=== PATIENT | male | born 1985 | race Caucasian/White ===

== ENCOUNTER → 2021-01-12 | Outpatient (CLI) | payer OTHER ==
[~2021-01-12] MED LIST: GADOTERATE 5 MMOL/10ML VIAL. INT ART ONE; IOHEXOL 300 MG/ML 50 ML VIAL. INT ART ONE; LIDOCAINE 1% Multi-Dose 20 ML VIAL. ID ONE
--- NOTE | 2021-01-12 17:52 | KCIC ---
EXAM: MRI RIGHT SHOULDER WITH CONTRAST INDICATION: Fall on outstretched hand 3 months ago, pain and decreased range of motion. COMPARISON: None TECHNIQUE: Multiplanar, multisequence imaging of the right shoulder after intra-articular injection o f contrast, performed separately. FINDINGS: Exam is limited by motion artifact on multiple sequences. ROTATOR CUFF: The supraspinatus, infraspinatus, subscapularis, and teres minor tendons are intact. No rotator cuff muscle atrophy or edema. LABRUM: There is a large superior labral tear extending anteriorly and posteriorly. This extends post eriorly to the posterior inferior labrum. This extends anteriorly through the anterior superior and a nterior labrum and possibly into the anterior inferior labrum although no anterior inferior labral te ar seen on ABER sequence. BICEPS TENDON: The biceps tendon is intact and located. ACROMIOCLAVICULAR JOINT: Normal. GLENOHUMERAL JOINT: Articular cartilage grossly intact. There is slight posterior decentering of the humeral head. No acute fracture.. No acute fracture or marrow signal abnormality. Alignment is normal . OTHER: Contrast distends joint. No contrast in the subacromial-subdeltoid bursa. IMPRESSION:Large SLAP tear extending posteriorly to the posterior inferior labrum and anteriorly to a t least the anterior labrum. Electronically signed by: Alejandrina Rouse MD (01/12/2021 5:50 PM) [id number]
--- NOTE | 2021-01-12 18:01 | KCIC ---
Fluoroscopically guided injection of the right shoulder to facilitate a MR arthrogram 01/12/2021 Clinical history: Right shoulder pain. Technique: After the risks and benefits of the procedure were explained to the patient, written infor med consent was obtained. The anterior skin surface of the right shoulder was prepped and draped in s terile fashion. 1% lidocaine was used as local anesthetic. Under fluoroscopic guidance, a 22-gauge sp inal needle was advanced into the anterior aspect of the left glenohumeral joint. Intra-articular pos ition of the needle was confirmed by injecting 3 cc of Omnipaque 300. Following this 15 cc of a solut ion containing 5 cc of 0.1% lidocaine, 5 cc of Omnipaque 300, 15 cc of normal saline and 0.1 cc of CL ARISCAN were injected into the right glenohumeral joint. Following this the needle was removed and he mostasis achieved at the puncture site. A sterile bandage was placed on the skin puncture site. The p atient tolerated the procedure well and there were no immediate complications. The patient was taken to MRI for further imaging evaluation. The total fluoroscopic time for this study was 25 seconds. 1 d igital fluoroscopic captured AP radiograph of the right shoulder was obtained. Impression: Technically successful injection of the right shoulder joint under fluoroscopy to facilit ate a MR arthrogram as outlined above. Electronically signed by: Tab Wiggins MD (01/12/2021 5:58 PM) [id number]
== END ==
LOC: KCIC 13:31
PROVIDERS: ATTEND Family Medicine
DX: M25.511 Pain in right shoulder (principal); S43.431A Superior glenoid labrum lesion of right shoulder, initial encounter; X58.XXXA Exposure to other specified factors, initial encounter; Y93.89 Activity, other specified; Y92.89 Other specified places as the place of occurrence of the external cause
CPT/HCPCS: 23350; 73222; 77002; A9575; J3490; Q9967

== ENCOUNTER 2021-02-12 06:00 | Day surgery (SDC) | payer OTHER ==
[~2021-02-12] VITALS: Ht 182.9 cm; Wt 95.4 kg
[~2021-02-12 06:00] MED LIST changes: -GADOTERATE 5 MMOL/10ML VIAL. INT ART ONE; +HYDROmorphone 2 MG/ML VIAL IVP PRN; -IOHEXOL 300 MG/ML 50 ML VIAL. INT ART ONE; +IV RINGERS,LACTATED 1000ML 1,000 ML IV SCH; -LIDOCAINE 1% Multi-Dose 20 ML VIAL. ID ONE; +MORPHINE SULFATE 2 MG/ML INJ. IVP PRN; +PROCHLORPERAZINE 10 MG/2 ML VIAL. IVP PRN; +fentaNYL PF VIAL 100 MCG/2 ML VIAL IVP PRN
[2021-02-12] MEDS ORDERED: MIDAZOLAM HCL/PF 2 MG/2 ML VIAL. ONE (06:27)
[2021-02-12] MEDS ORDERED: BUPIVACAINE MPF 0.5% 30 ML VIAL. ONE (06:27)
[2021-02-12 06:31] VITALS: BP 137/76
[2021-02-12] MEDS ORDERED: DEXAMETHASONE SOD PHOS 4 MG/ML VIAL ONE (06:40)
[2021-02-12] MEDS ORDERED: LIDOCAINE 2% PF 5 ML VIAL. ONE (06:40)
[2021-02-12] MEDS ORDERED: ROCURONIUM 50 MG/5 ML VIAL. ONE (06:40)
[2021-02-12] MEDS ORDERED: PROPOFOL 10 MG/ML (20ML) VIAL. IV ONE ×2 (06:40→08:12)
[2021-02-12] MEDS ORDERED: ONDANSETRON PF 4 MG/2 ML VIAL. ONE (06:40)
[2021-02-12] MEDS ORDERED: EPINEPHrine VIAL 30 MG/30 ML VIAL ONE (07:14)
[2021-02-12] MEDS ORDERED: OXYC1TAB19 PO (07:35)
[2021-02-12] MEDS ORDERED: fentaNYL PF VIAL 100 MCG/2 ML VIAL ONE ×2 (07:46→10:03)
[2021-02-12] MEDS ORDERED: NEOSTIGMINE METHYLSULFATE 5 MG/5 ML SYRINGE. ONE (09:15)
[2021-02-12] MEDS ORDERED: SEVOFLURANE 61 TO 120 MINUTES. IH ONE (09:16)
--- NOTE | 2021-02-12 09:26 | DISCH ---
DISCHARGE INSTRUCTIONS Condition on Discharge Condition on Discharge: Stable Activity After Discharge Activity Instructions for Disc: Other, see below (Gentle range of motion right shoulder to eat write type and similar activities with the arm near the side may reach gently but no lifting) Weight Bearing Status after Di: Non weight bearing (May dangle arm at side, wear immobilizer when sleeping at all times may remove for gentle motion activities and shower) Wound Incision Care Wound/Incision Care: Ice to area for comfort, Change dressing (Remove dressing in 2 days may then shower no soaking until sutures removed) Contacting the after DC Call your doctor for: Concerns you may have Follow-Up Follow up with: Dr. Kilgore or Noé 10 days QUINTON KILGORE MD Feb 12, 2021 09:26
[2021-02-12] MEDS ORDERED: oxyCODONE/APAP 7.5/325 1 TAB TABLET PO ONE (10:00)
[2021-02-12] MEDS: fentaNYL PF VIAL 100 MCG/2 ML VIAL IVP PRN ×2 (10:05→10:20)
--- NOTE | 2021-02-12 10:51 | PDOC4 ---
Operative Note Operative Note Date of surgery: 02/12/2021 Preoperative diagnosis: Right shoulder SLAP repair Postoperative diagnosis: Same with type II SLAP tear unstable and posterior labral tear down to the 7 o'clock position Operative procedure: Right shoulder SLAP and posterior Bankart repairs Surgeon: Jame Assist: George cai assist Anesthesia: General plus scalene block Estimated blood loss: 10 cc Complications: None Operative indications: Please see my preoperative clinic note for detailed operative indications and note that he is an active male unable to perform his duties and physical fitness testing requirements due to the severe pain in the shoulder. MRI showed a SLAP tear and we had covered the possibility of additional nonoperative treatment which has not been acceptable for him in terms of returning to his required activities and the possibility of operative repair including the possibility of infection stiffness nerve or blood vessel damage continued instability medical or other anesthetic complications among others. All his questions were answered and he wishes to proceed with surgical evaluation and treatment Operative text: Patient was identified procedure verified patient placed in the supine position on the operating table. After adequate amounts of general anesthesia were administered plus a pre-existing scalene block he was placed decubitus position right side up all bony promises well-padded shoulder was taken through full range of motion and he did have some findings of posterior instability with [id number]. The right shoulder was then prepped and draped in the standard sterile fashion and after timeout was performed patient procedure identified and verified a standard posterior portal was established an anterior portal established using spinal needle localization and the shoulder joint was systematically examined. Rotator cuff insertion was noted to be intact including the subscapularis supraspinatus infraspinatus and normal bare area of the humerus. He did have a unstable type II SLAP tear with biceps tendon otherwise intact without subluxation. Glenohumeral cartilage surfaces noted to be intact aside from some compromise where the posterior labrum was torn away there was likewise some cartilage damage very focally at the glenoid rim but no erosion. Glenoid had its normal pear-shaped and I elected to proceed with SLAP and posterior Bankart repair. A portal was placed under spinal needle localization from the posterior lateral acromion through the rotator cuff and a small cannula placed with a larger cannula in the anterior portal. Arthroscopic bur and shaver were used to denude the glenoid from approximately the 2 o'clock position to the 7 o'clock position posteriorly back to good bleeding bony tissue and a total of 3 anchors were placed in total at approximately the 11:00 and 8:00 positions posteriorly and the 1 o'clock position superiorly with excellent apposition of the SLAP and posterior Bankart repairs which were secured with sliding locking knots backed up by alternating post half hitches that were placed to the outer portion of the joint to avoid any suture impingement. Excellent apposition was noted and stability restored in all planes of motion. Joint was drained of arthroscopic fluid portals closed with nylon suture sterile dressings were applied patient was placed in an immobilizer and returned to recovery room stable condition having tolerated procedure well. George montemayor was present for the procedure and assisted in patient positioning prepping draping equipment positioning closure dressings and immobilizer placement QUINTON WEST MD Feb 12, 2021 10:51
[2021-02-12 12:25] VITALS: BP 109/72
== END 2021-02-12 12:35 | disposition home or self-care (01) ==
LOC: SURG 06:00
PROVIDERS: ATTEND Orthopaedic Surgery
DX: S43.431A Superior glenoid labrum lesion of right shoulder, initial encounter (principal); F41.9 Anxiety disorder, unspecified; Z98.52 Vasectomy status; Z98.890 Other specified postprocedural states; X58.XXXA Exposure to other specified factors, initial encounter; Y93.89 Activity, other specified; Y92.89 Other specified places as the place of occurrence of the external cause
CPT/HCPCS: 29807; A4930; C1713; C1776; J0171; J0690; J0780; J1100; J2250; J2405; J2704; J2710; J3010; J3490